=== PATIENT | female | born 1995 | race Caucasian/White ===

== ENCOUNTER 2020-03-11 02:33 | Inpatient (IN) | payer MEDICAID ==
[2020-03-11 05:54] LABS: APPEARANCE,URINE SLIGHTLY-CLOUDY; BILIRUBIN,URINE NEGATIVE (NEGATIVE); COLOR,URINE YELLOW; GLUCOSE, URINE NEGATIVE (NEGATIVE); KETONES,URINE NEGATIVE (NEGATIVE); LEUKOCYTE ESTERASE,URINE NEGATIVE (NEGATIVE); NITRITE,URINE NEGATIVE (NEGATIVE); PROTEIN,URINE NEGATIVE (NEGATIVE); URINE SPECIFIC GRAVITY 1.011; UROBILINOGEN,URINE NEGATIVE mg/dL (<2.0)
[2020-03-11 06:01] LABS: URINE AMPHETAMINES SCREEN NEGATIVE; URINE BARBITURATES SCREEN NEGATIVE; URINE BENZODIAZEPINES SCREEN NEGATIVE; URINE MARIJUANA (THC) SCREEN NEGATIVE; URINE METHADONE SCREEN NEGATIVE; URINE PHENCYCLIDINE SCREEN NEGATIVE
[2020-03-11 06:15] LABS: ABSOLUTE EOSINOPHILS # (AUTO) 0.1 10^3/uL (0.0-0.6); ABSOLUTE LYMPHOCYTES (AUTO) 3.5 10^3/uL (0.5-4.7); ABSOLUTE MONOCYTES (AUTO) 0.6 10^3/uL (0.1-1.4); ABSOLUTE NEUT (AUTO) 7.4 10^3/uL (1.7-8.2); BASOPHILS % (AUTO) 0.3 % (0-2); EOSINOPHILS % (AUTO) 0.7 % (0-6); HEMATOCRIT 29.6 % (36.0-47.0); HEMOGLOBIN 10.2 g/dL (12.0-15.5); LYMPHOCYTES % (AUTO) 30.3 % (13-45); MEAN CORPUSCULAR HEMOGLOBIN 28.8 pg (27.0-33.4); MEAN CORPUSCULAR HGB CONC 34.6 g/dL (32.0-36.0); MEAN CORPUSCULAR VOLUME 83 fl (80-97); MONOCYTES % (AUTO) 5.2 % (3-13); PLATELET COUNT 276 10^3/uL (150-450); RED BLOOD COUNT 3.55 10^6/uL (3.72-5.28); RED CELL DISTRIBUTION WIDTH 14.3 % (11.5-14.0); SEGMENTED NEUTROPHILS % (AUTO) 63.5 % (42-78); TOTAL CELLS COUNTED % (AUTO) 100 %; WHITE BLOOD COUNT 11.7 10^3/uL (4.0-10.5)
[2020-03-11] MEDS ORDERED: RINGERS SOLUTION,LACTATED 1,000 ML IV PRN ×2 (06:25→08:29)
[2020-03-11] MEDS ORDERED: CEFAZOLIN 1 GM/D5W RTU 1 GM/50 ML RTUPB IV ONE (06:30)
[2020-03-11] MEDS ORDERED: RINGERS SOLUTION,LACTATED 1,000 ML IV ONE (06:30)
[2020-03-11] MEDS ORDERED: EPHEDRINE SULFATE INJ 50 MG/1 ML AMPULE ONE (07:33)
[2020-03-11] MEDS ORDERED: OXYTOCIN 10 UNIT/ML VIAL ONE (07:33)
[2020-03-11] MEDS ORDERED: OXYTOCIN/0.9 % SODIUM CHLORIDE 30 UNIT/500 ML RTUINJ ONE (07:33)
[2020-03-11] MEDS ORDERED: KETOROLAC TROMETHAMINE INJ/PF 30 MG/1 ML SDV ONE (07:33)
[2020-03-11] MEDS ORDERED: FENTANYL CITRATE INJ/PF 100 MCG/2 ML AMPUL ONE (07:33)
[2020-03-11] MEDS ORDERED: MIDAZOLAM 2 MG/2 ML INJ ONE (07:33)
[2020-03-11] MEDS ORDERED: PHENYLEPHRINE HCL INJ/PF 10 MG/1 ML SDV ONE (07:33)
[2020-03-11] MEDS ORDERED: BUPIVACAINE HCL 0.25 % INJ/PF (2.5 MG/1 ML) 30 ML VIAL ONE (07:34)
[2020-03-11] MEDS ORDERED: ONDANSETRON HCL INJ/PF 4 MG/2 ML SDV ONE (07:34)
[2020-03-11] MEDS ORDERED: PROMETHAZINE HCL INJ 25 MG/1 ML VIAL IV PRN ×3 (08:23→08:29)
[2020-03-11] MEDS ORDERED: DIPHENHYDRAMINE HCL 50 MG/ML VIAL IV PRN (08:23)
[2020-03-11] MEDS ORDERED: MEPERIDINE HCL/PF INJ 25 MG/1 ML DISP.SYRIN IV PRN (08:23)
[2020-03-11] MEDS ORDERED: FENTANYL CITRATE INJ/PF 100 MCG/2 ML AMPUL IV PRN ×3 (08:23)
[2020-03-11] MEDS ORDERED: OXYCODONE-ACETAMINOPHEN 5-325 MG TABLET PO PRN ×2 (08:23)
[2020-03-11] MEDS ORDERED: ONDANSETRON HCL INJ/PF 4 MG/2 ML SDV IV PRN (08:23)
[2020-03-11] MEDS ORDERED: ACETAMINOPHEN 325 MG TABLET PO PRN (08:29)
[2020-03-11] MEDS ORDERED: DIPH/PERTUSS(ACELL)/TETANUS VAC/PF 0.5 ML SYR (>=10YO) IM PRN (08:29)
[2020-03-11] MEDS ORDERED: ACETAMINOPHEN 1,000 MG/100 ML RTUPB IV PRN (08:29)
[2020-03-11] MEDS ORDERED: MORPHINE SULFATE 10 MG/ML INJ IM PRN (08:29)
[2020-03-11] MEDS ORDERED: MEASLES,MUMPS&RUBELLA VACC/PF 0.5 ML VIAL SUBCUT PRN (08:29)
[2020-03-11] MEDS ORDERED: OXYTOCIN/0.9 % SODIUM CHLORIDE 30 UNIT/500 ML RTUINJ IV PRN (08:29)
[2020-03-11] MEDS ORDERED: SIMETHICONE 80 MG TAB.CHEW PO PRN (08:29)
--- NOTE | 2020-03-11 08:29 | PDOC DELIVERY SUMMARY ---
Delivery Summary - Maternal Hx : IV Hx # Term Pregnancies: 2 GISELLA: 03/15/20 Risk Factors: Previous Ruptured Membranes: AROM Fluids: Clear - Delivery Labor: Not In Labor Presentation: Vertex Heart Rate Monitoring: Done Pre-Operatively Uterine Contraction Monitoring: External Support Person Present: Yes : Scheduled Placenta: Within Normal Limits Nuchal Cord: No - Medications Type of Anesthesia:: Spinal
--- NOTE | 2020-03-11 08:33 | Operative Report ---
Operative Report DATE OF SURGERY: 03/11/20 PREOPERATIVE DIAGNOSIS: IUP at term prior section POSTOPERATIVE DIAGNOSIS: Same OPERATION: Repeat low transverse section delivery of viable female SURGEON: DAVID MCKEON ANESTHESIA: Spinal TISSUE REMOVED OR ALTERED: Placenta ESTIMATED BLOOD LOSS: [place]ousand cc PROCEDURE: The patient was taken to the operating room where spinal anesthesia was obtained and found to be adequate. She was then prepped and draped in the normal sterile fashion and placed in the dorsal supine position with a leftward tilt. A Pfannenstiel skin incision was then made and carried through to the underlying layers of the fascia with the scalpel. The fascia was incised in the midline and the incision extended laterally with the Jernigan scissors. The superior aspect of the fascial incision was then grasped with [place] clamps elevated and the underlying rectus muscles dissected off bluntly. Attention was then turned to the inferior aspect of the fascial incision which in a similar fashion was grasped, tented up with Kip clamps, and the rectus muscles dissected off bluntly. The rectus muscles were then in the midline and the peritoneum at the amount identified and entered bluntly. The peritoneal incision was then extended superiorly and inferiorly with good visualization of the bladder. [The bladder blade was inserted and the vesicouterine peritoneum identified grasped with [place] pickups and entered sharply with the Metzenbaum scissors. His incision was then extended laterally with the Metzenbaum scissors and a bladder flap created digitally. The bladder blade was then reinserted and the lower uterine segment incised in a transverse fashion with the scalpel. The uterine incision was then extended bluntly. The bladder blade was removed and the 's head was delivered from cephalic presentation atraumatically. The nose and mouth were suctioned and the cord doubly clamped and cut. And the was handed off to waiting pediatricians. The placenta was then delivered manully and the uterus exteriorized and cleared of all clots and debris. The uterine incision was then repaired with 1-0 Vicryl in a running locked fashion. A second layer of the same suture was used to obtain hemostasis via imbrication of the initial layer. The uterus was returned to the patient's abdomen. The gutters were cleared of all clots and debris. All operative sites were noted to be hemostatic. The fascia was reapproximated with 0 Vicryl in a running fashion from each lateral edge to the midline. The patient tolerated the procedure well. Sponge lap needle and instrument counts are correct -2. 2 g of Ancef were given prior to skin incision. The patient was taken to the recovery area awake and in stable condition.
[2020-03-11 08:54] LABS: URINE COCAINE SCREEN NEGATIVE
[2020-03-11] MEDS ORDERED: ACETAMINOPHEN 1,000 MG/100 ML RTUPB IV ONE (09:55)
--- NOTE | 2020-03-11 10:28 | Delivery Summary ---
Del Sum A-C Datetime Report Generated by CPN: 03/11/2020 10:27 DELIVERY PERSONNEL DELIVERY PERSONNEL: [id number] Delivery Doctor:: Filipe Kim MD TRUSS DRIVER HELPER:: Artemio De La Paz CRNA Chocolate Refining Roller:: Marva Dolan RN Neonatal Nurse Practitioner:: GEE Desai Nursery Nurse:: Mai Ruiz RN [employer] DIRECTOR: [employer] [place] [employer] DIRECTOR: Laine Isbell, CURB MACHINE OPERATOR Additional Personnel: : Kathryn Qiu, RN MATERNAL INFORMATION Delivery Anesthesia: Spinal Medications After Delivery: Pitocin 30 Units in 500ml NS/D5W Meds After Delivery Comment: See Anesthesia Delivery QBL: 870 Maternal Complications: None LABOR SUMMARY EDC: 03/15/2020 00:00 STAGES OF LABOR Stage 3 hr: 0 Stage 3 min: 1 CSECTION DELIVERY Primary Indication: Repeat Elective CSection Urgency: Scheduled CSection Incidence: Repeat Labor: N/A Elective: Elective CSection Incision: Lower Uterine Transverse BABY A INFORMATION Infant Delivery Date/Time: 03/11/2020 08:10 Method of Delivery: Born in Route : No : N/A Forceps: N/A Vacuum Extraction: N/A Shoulder Dystocia : No PRESENTATION/POSITION BABY A Presentation: Cephalic Cephalic Presentation: Vertex Breech Presentation: N/A PLACENTA INFORMATION BABY A Placenta Delivery Time : 03/11/2020 08:11 Placenta Method of Delivery: Manual Removal Placenta Status: Delivered SCORES BABY A Heart Rate 1 min: >100 bpm Resp Effort 1 min: Good Cry Reflex Irritability 1 min: Cough or Sneeze or Pulls Away Muscle Tone 1 min: Active Motion Color 1 min: Body [place], Extremities Blue SCORE 1 MIN: 9 Heart Rate 5 min: >100 bpm Resp Effort 5 min: Good Cry Reflex Irritability 5 min: Cough or Sneeze or Pulls Away Muscle Tone 5 min: Active Motion Color 5 min: Body [place], Extremities Blue SCORE 5 MIN: 9 INFANT INFORMATION BABY A Gestational Age at Delivery: 39.3 Gestational Status: Full Term- 39- 40.6 Weeks Outcome : Liveborn Condition : Stable Sex: Female WEIGHT/LENGTH BABY A Birthweight (gm): 2955 Infant Weight (lb): 6 Weight (oz): 8 Length (in): 19.25 Infant Length (cm): 48.90 CORD INFORMATION BABY A No. Cord Vessels: 3 Nuchal Cord : N/A Cord Blood Taken: Yes-For Storage (Mom's Blood type +) Suction: None
[2020-03-11] MEDS: DOCUSATE SODIUM 100 MG CAPSULE PO SCH ×2 (11:14→18:18)
[2020-03-11] MEDS: PRENATAL VITAMIN W DHA CAPSULE PO SCH (11:14)
[2020-03-11] MEDS: KETOROLAC TROMETHAMINE INJ/PF 30 MG/1 ML SDV IV SCH ×2 (12:27→18:17)
[2020-03-11] MEDS: OXYCODONE-ACETAMINOPHEN 5-325 MG TABLET PO PRN ×2 (13:59→18:18)
[2020-03-12] MEDS: IBUPROFEN 800 MG TABLET PO SCH ×4 (00:36→18:01)
[2020-03-12] MEDS: OXYCODONE-ACETAMINOPHEN 5-325 MG TABLET PO PRN ×3 (04:51→19:25)
[2020-03-12 07:29] LABS: HEMATOCRIT 29.8 % (36.0-47.0); HEMOGLOBIN 10.2 g/dL (12.0-15.5); MEAN CORPUSCULAR HEMOGLOBIN 28.6 pg (27.0-33.4); MEAN CORPUSCULAR HGB CONC 34.1 g/dL (32.0-36.0); MEAN CORPUSCULAR VOLUME 84 fl (80-97); PLATELET COUNT 290 10^3/uL (150-450); RED BLOOD COUNT 3.55 10^6/uL (3.72-5.28); RED CELL DISTRIBUTION WIDTH 14.2 % (11.5-14.0); WHITE BLOOD COUNT 14.9 10^3/uL (4.0-10.5)
[2020-03-12] MEDS: PRENATAL VITAMIN W DHA CAPSULE PO SCH (10:25)
[2020-03-12] MEDS: DOCUSATE SODIUM 100 MG CAPSULE PO SCH ×2 (10:25→18:01)
--- NOTE | 2020-03-12 10:30 | PDOC PROGRESS REPORT ---
Subjective-OB Progress Note for:: 03/12/20 Subjective: Doing well, no c/o, pain under control, voiding, passing gas, no BM, Physical Exam (OB) Vital Signs: Temp Pulse Resp BP Pulse Ox 98.2 F 82 18 117/62 99 03/12/20 07:35 03/12/20 07:35 03/12/20 07:35 03/12/20 07:35 03/12/20 07:35 Intake & Output 03/11/20 03/12/20 03/13/20 06:59 06:59 06:59 Intake Total 2900 Output Total 1400 Balance 1500 Weight 72.575 kg - PIH/Pre-Eclampsia DTR's: 2 + Clonus: Negative Headache: Absent Epigastric Pain: No Visual Changes: No - Dressing Removed: No - pressure dressing intact Incision: Dressing - Lochia Lochia Amount: Scant < 10 ml Lochia Color: Rubra/Red - Abdomen Description: Soft, Round Hernia Present: No Fundal Description: Firm, Midline Fundal Height: u/u - u/2 Objective-Diagnostic Laboratory: 03/12/20 06:35 03/12/20 06:35 WBC 14.9 H RBC 3.55 L Hgb 10.2 L Hct 29.8 L MCV 84 MCH 28.6 MCHC 34.1 RDW 14.2 H Plt Count 290 Assessment and Plan(PN) - Assessment and Plan (1) Smoker Is this a current diagnosis for this admission?: Yes (2) Status post repeat low transverse section Is this a current diagnosis for this admission?: Yes - Time Spent with Patient Time with patient: Less than 15 minutes Medications reviewed and adjusted accordingly: Yes - Disposition Anticipated Discharge: Home Within: within 24 hours
[2020-03-12] MEDS ORDERED: IBUPROFEN 800 MG TABLET PO SCH (12:00)
[2020-03-13] MEDS: IBUPROFEN 800 MG TABLET PO SCH ×3 (00:43→13:17)
--- NOTE | 2020-03-13 09:49 | PDOC PROGRESS REPORT ---
Subjective-OB Progress Note for:: 03/13/20 Subjective: feeling better today, ready to go home, pain under control, hsb at BS, passing gas, voiding, Physical Exam (OB) Vital Signs: Temp Pulse Resp BP Pulse Ox 98.2 F 85 18 112/56 L 99 03/13/20 07:33 03/13/20 07:33 03/13/20 07:33 03/13/20 07:33 03/13/20 07:33 Intake & Output 03/12/20 03/13/20 03/14/20 06:59 06:59 06:59 Intake Total 2900 Output Total 1400 Balance 1500 - PIH/Pre-Eclampsia DTR's: 2 + Clonus: Negative Headache: Absent Epigastric Pain: No Visual Changes: No - Dressing Removed: Yes Incision: Well Approximated Closure Type: Surgical Glue - Lochia Lochia Amount: Scant < 10 ml Lochia Color: Rubra/Red - Abdomen Description: Tender, Soft, Flat Hernia Present: No Fundal Description: Firm, Midline Fundal Height: u/u - u/2 Objective-Diagnostic Laboratory: 03/12/20 06:35 Assessment and Plan(PN) - Assessment and Plan (1) Smoker Is this a current diagnosis for this admission?: Yes (2) Status post repeat low transverse section Is this a current diagnosis for this admission?: Yes - Time Spent with Patient Time with patient: Less than 15 minutes Smoking Education Provided: Over 3 minutes Medications reviewed and adjusted accordingly: Yes - Disposition Anticipated Discharge: Home Within: within 24 hours
--- NOTE | 2020-03-13 09:55 | PDOC DISCHARGE SUMMARY ---
Impression - Admit/DC Date/PCP Admission Date/Primary Care Provider: 03/11/20 04:52 DAVID MCKEON MD Discharge Date: 03/13/20 - Discharge Diagnosis (1) Smoker Is this a current diagnosis for this admission?: Yes (2) Status post repeat low transverse section Is this a current diagnosis for this admission?: Yes - Additional Information Resuscitation Status: Full Code Discharge Diet: As Tolerated, Regular Discharge Activity: Activity As Tolerated, No Driving, No Lifting Over 10 Pounds, No Lifting/Push/Pulling, Pelvic Rest, No tub bath Referrals: DAVID MCKEON MD [Primary Care Provider] - (a 1 week) Prescriptions: Oxycodone HCl/Acetaminophen [Percocet 5-325 mg Tablet] 1 tab PO Q4HP PRN #20 tablet PRN Reason: Ibuprofen [Motrin 800 mg Tablet] 800 mg PO Q6 #30 tablet Home Medications: Calcium Carbonate [Tums Chewable 500 mg Tab.chew] 500 mg PO MEALSHS 03/11/20 Vits96/Iron Fum/Folic [ Tablet] 1 each PO DAILY 03/11/20 Ibuprofen [Motrin 800 mg Tablet] 800 mg PO Q6 #30 tablet 03/13/20 Oxycodone HCl/Acetaminophen [Percocet 5-325 mg Tablet] 1 tab PO Q4HP PRN #20 tablet 03/13/20 HPI Gestational Age: 39 Reason(s) for Admission: Ceasarean Section-Repeat Procedures: NST, Ultrasound Intrapartum Procedure(s): : Low Cervical, Transverse Hospital Course Hospital Course: no complications Results Laboratory Results: WBC 14.9 10^3/uL (4.0-10.5) H 03/12/20 06:35 RBC 3.55 10^6/uL (3.72-5.28) L 03/12/20 06:35 Hgb 10.2 g/dL (12.0-15.5) L 03/12/20 06:35 Hct 29.8 % (36.0-47.0) L 03/12/20 06:35 MCV 84 fl (80-97) 03/12/20 06:35 MCH 28.6 pg (27.0-33.4) 03/12/20 06:35 MCHC 34.1 g/dL (32.0-36.0) 03/12/20 06:35 RDW 14.2 % (11.5-14.0) H 03/12/20 06:35 Plt Count 290 10^3/uL (150-450) 03/12/20 06:35 Lymph % (Auto) 30.3 % (13-45) 03/11/20 06:02 [place] % (Auto) 5.2 % (3-13) 03/11/20 06:02 Eos % (Auto) 0.7 % (0-6) 03/11/20 06:02 Baso % (Auto) 0.3 % (0-2) 03/11/20 06:02 Absolute Neuts (auto) 7.4 10^3/uL (1.7-8.2) 03/11/20 06:02 Absolute Lymphs (auto) 3.5 10^3/uL (0.5-4.7) 03/11/20 06:02 Absolute Monos (auto) 0.6 10^3/uL (0.1-1.4) 03/11/20 06:02 Absolute Eos (auto) 0.1 10^3/uL (0.0-0.6) 03/11/20 06:02 Absolute Basos (auto) 0.0 10^3/uL (0.0-0.2) 03/11/20 06:02 Seg Neutrophils % 63.5 % (42-78) 03/11/20 06:02 Urine Color YELLOW 03/11/20 05:15 Urine Appearance SLIGHTLY-CLOUDY 03/11/20 05:15 Urine pH 7.0 (5.0-9.0) 03/11/20 05:15 Ur Specific [place] 1.011 03/11/20 05:15 Urine Protein NEGATIVE mg/dL (NEGATIVE) 03/11/20 05:15 Urine Glucose (UA) NEGATIVE mg/dL (NEGATIVE) 03/11/20 05:15 Urine Ketones NEGATIVE mg/dL (NEGATIVE) 03/11/20 05:15 Urine Blood NEGATIVE (NEGATIVE) 03/11/20 05:15 Urine Nitrite NEGATIVE (NEGATIVE) 03/11/20 05:15 Urine Bilirubin NEGATIVE (NEGATIVE) 03/11/20 05:15 Urine Urobilinogen NEGATIVE mg/dL (<2.0) 03/11/20 05:15 Ur Leukocyte Esterase NEGATIVE (NEGATIVE) 03/11/20 05:15 Urine WBC (Auto) 1 /HPF 03/11/20 05:15 Urine RBC (Auto) 1 /HPF 03/11/20 05:15 Urine Bacteria (Auto) TRACE /HPF 03/11/20 05:15 Squamous Epi Cells Auto 12 /HPF 03/11/20 05:15 Urine Mucus (Auto) RARE /LPF 03/11/20 05:15 Urine Ascorbic Acid NEGATIVE (NEGATIVE) 03/11/20 05:15 Urine Opiates Screen NEGATIVE 03/11/20 05:15 Urine Methadone Screen NEGATIVE 03/11/20 05:15 Ur Barbiturates Screen NEGATIVE 03/11/20 05:15 Ur Phencyclidine Scrn NEGATIVE 03/11/20 05:15 Ur Amphetamines Screen NEGATIVE 03/11/20 05:15 U Benzodiazepines Scrn NEGATIVE 03/11/20 05:15 Urine Cocaine Screen NEGATIVE 03/11/20 05:15 U Marijuana (THC) Screen NEGATIVE 03/11/20 05:15 SARS-CoV-2 (PCR) NEGATIVE (NEGATIVE) 03/11/20 05:15 Blood Type B POSITIVE 03/11/20 06:02 Antibody Screen NEGATIVE 03/11/20 06:02 Plan Health Concerns: pain management, smoking Plan of Treatment: d/c home, no smoking around babym discussed cessation, pain meds, walk Goals: no complications Time Spent: Less than 30 Minutes
[2020-03-13] MEDS: PRENATAL VITAMIN W DHA CAPSULE PO SCH (10:23)
[2020-03-13] MEDS: DOCUSATE SODIUM 100 MG CAPSULE PO SCH (10:23)
[2020-03-13 12:06] VITALS: BP 94/54
== END 2020-03-13 15:10 | disposition home or self-care (01) | DRG 788 ==
LOC: 2S 04:52
PROVIDERS: ADMIT Obstetrics & Gynecology Gynecology; ATTEND Obstetrics & Gynecology Gynecology
PROC: 10D00Z1 Extraction of Products of Conception, Low, Open Approach (ICD-10-PCS; principal; 2020-03-11)
DX: O34.211 Maternal care for low transverse scar from previous cesarean delivery (principal); O99.334 Smoking (tobacco) complicating childbirth; F17.210 Nicotine dependence, cigarettes, uncomplicated; Z3A.39 39 weeks gestation of pregnancy; Z37.0 Single live birth
CPT/HCPCS: 1961; 36415; 59025; 64450; 76942; 80307; 81001; 85025; 85027; 86850; 86900; 86901; 87635; 94760; 94799; C1758; C9803; J0131; J1885; J2250; J2370; J2405; J2590; J3010; J3490; J7120